=== PATIENT | female | born 1945 | race Caucasian/White ===

== ENCOUNTER → 2017-04-22 | Outpatient (CLI) | payer MEDICARE ==
[~2017-04-22] MED LIST: REGADENOSON 0.4 MG/5 ML SYRINGE ONE
== END | disposition home or self-care (01) ==
LOC: CFH 06:43
PROVIDERS: ATTEND Internal Medicine Cardiovascular Disease
DX: I08.1 Rheumatic disorders of both mitral and tricuspid valves (principal); I10 Essential (primary) hypertension
CPT/HCPCS: 78452; 93017; 93306; A9502; J2785

== ENCOUNTER → 2017-06-16 | Outpatient (CLI) | payer MEDICARE | END | disposition home or self-care (01) | LOC: CVU 09:25 | PROVIDERS: ATTEND Nurse Practitioner Family | DX: I10 Essential (primary) hypertension (principal) | CPT/HCPCS: 93975 ==

== ENCOUNTER → 2017-11-06 | Outpatient (CLI) | payer MEDICARE | END | disposition home or self-care (01) | LOC: CFH 09:23 | PROVIDERS: ATTEND Internal Medicine Cardiovascular Disease | DX: K76.0 Fatty (change of) liver, not elsewhere classified (principal); K76.6 Portal hypertension | CPT/HCPCS: 76705 ==

== ENCOUNTER 2020-09-21 07:47 | Day surgery (SDC) | payer MEDICARE ==
[~2020-09-21] VITALS: Ht 167.6 cm; Wt 84.5 kg
[2020-09-21] MEDS ORDERED: LIDOCAINE 2%, 20ML ONE (08:35)
== END 2020-09-21 10:41 | disposition home or self-care (01) ==
LOC: CACL 07:47
PROVIDERS: ATTEND Internal Medicine Cardiovascular Disease
DX: R55 Syncope and collapse (principal); I48.0 Paroxysmal atrial fibrillation; I63.9 Cerebral infarction, unspecified; I10 Essential (primary) hypertension; Z79.01 Long term (current) use of anticoagulants; Z79.891 Long term (current) use of opiate analgesic; Z79.899 Other long term (current) drug therapy; Z88.0 Allergy status to penicillin
CPT/HCPCS: 33285; C1764

== ENCOUNTER 2020-10-11 10:41 | Day surgery (SDC) | payer MEDICARE ==
[~2020-10-11] VITALS: Ht 170.2 cm; Wt 76.4 kg
[2020-10-11] MEDS ORDERED: LIDOCAINE-MPF 1%, 5ML ONE (12:06)
== END 2020-10-11 13:15 | disposition home or self-care (01) ==
LOC: CACL 10:41
PROVIDERS: ATTEND Internal Medicine Cardiovascular Disease
DX: Z45.09 Encounter for adjustment and management of other cardiac device (principal); I48.0 Paroxysmal atrial fibrillation; I10 Essential (primary) hypertension; Z79.01 Long term (current) use of anticoagulants; Z79.891 Long term (current) use of opiate analgesic; Z79.899 Other long term (current) drug therapy; Z88.0 Allergy status to penicillin; Z88.8 Allergy status to other drugs, medicaments and biological substances
CPT/HCPCS: 33286

== ENCOUNTER → 2020-10-23 | Outpatient (CLI) | payer MEDICARE ==
[~2020-10-23] MED LIST changes: +OMNIPAQUE 350 MG/ML, 150 ML BOTTLE ONE; -REGADENOSON 0.4 MG/5 ML SYRINGE ONE
== END | disposition home or self-care (01) ==
LOC: CFH 14:17
PROVIDERS: ATTEND Internal Medicine Cardiovascular Disease
DX: I48.0 Paroxysmal atrial fibrillation (principal)
CPT/HCPCS: 71046; 75572; Q9967

== ENCOUNTER → 2020-10-23 | Outpatient (CLI) | payer MEDICARE | END | disposition home or self-care (01) | LOC: STAR 13:34 | PROVIDERS: ATTEND Internal Medicine Cardiovascular Disease | DX: Z20.828 Contact with and (suspected) exposure to other viral communicable diseases (principal) | CPT/HCPCS: 87635 ==

== ENCOUNTER → 2020-11-08 | Outpatient (CLI) | payer MEDICARE ==
[~2020-11-08] MED LIST changes: +ATOR40TA78 PO; +FLEC100T PO; +HYDR-3342 PO; +HYDR-3343 PO; +HYDR-3569 PO; +HYDR25TA6 PO; +LISI40TA PO; +METO50TA82 PO; -OMNIPAQUE 350 MG/ML, 150 ML BOTTLE ONE; +SOTA80TA18 PO; +WARF-36 PO
== END | disposition home or self-care (01) ==
LOC: RAD 09:32
PROVIDERS: ATTEND Internal Medicine Cardiovascular Disease
DX: S40.021A Contusion of right upper arm, initial encounter (principal); M79.81 Nontraumatic hematoma of soft tissue; M79.601 Pain in right arm; R10.813 Right lower quadrant abdominal tenderness; X58.XXXA Exposure to other specified factors, initial encounter; Y93.89 Activity, other specified; Y92.89 Other specified places as the place of occurrence of the external cause; Y99.8 Other external cause status
CPT/HCPCS: 76857